=== PATIENT | male | born 1980 ===

== ENCOUNTER 2023-03-16 06:09 | Day surgery (SDC) | payer OTHER ==
[2023-03-12 11:55] LABS: HEMATOCRIT 43.8 % (39.0-48.0); HEMOGLOBIN 14.3 g/dL (13-16.00); MEAN CORPUSCULAR HEMOGLOBIN 28.1 pg (27.00-32.0); MEAN CORPUSCULAR HGB CONC 32.7 g/dl (32.0-36.0); PLATELET COUNT 169 K/uL (150-450); RED BLOOD COUNT 5.09 M/uL (4.00-6.00); RED CELL DISTRIBUTION WIDTH 13.1 % (11.5-14.5)
[2023-03-12 11:56] LABS: URINE APPEARANCE Clear; URINE BILIRRUBIN Negative (NEGATIVE); URINE BLOOD Negative; URINE COLOR Yellow; URINE GLUCOSE Negative (NEGATIVE); URINE LEUKOCYTE Negative; URINE NITRATE Negative; URINE PROTEIN Negative (NEGATIVE); URINE UROBILINOGEN 0.2 E.U./dl
[2023-03-12 12:01] LABS: URINE RBC 3.7 uL (0.0-20.8)
[2023-03-12 12:15] LABS: URINE BACTERIA 1.2 uL (0.0-1933); URINE WBC 1.2 uL (0.0-23.2)
[2023-03-12 12:15] LABS: INR 0.98; PARTIAL THROMBOPLASTIN TIME 25.5 SECONDS (22.0-34.0); PROTHROMBIN TIME 10.3 SECONDS (9.0-11.5)
[2023-03-12 12:46] LABS: BILIRUBIN TOTAL 0.51 mg/dL (0.3-1.2); CALCIUM 9.8 mg/dL (8.5-10.1); CREATININE SERUM 1.28 mg/dL (0.70-1.30); GFR 61.63; GLOBULINA 3.4 G/DL (2.4-3.5); POTASSIUM 4.64 mEq/L (3.5-5.1); TOTAL PROTEIN 7.4 gm/dL (6.4-8.2)
== END 2023-03-16 14:50 | disposition home or self-care (01) ==
LOC: CIR.AMB 06:09
PROVIDERS: ATTEND Orthopaedic Surgery Hand Surgery
DX: S63.301A Traumatic rupture of unspecified ligament of right wrist, initial encounter (principal); E11.9 Type 2 diabetes mellitus without complications; E78.00 Pure hypercholesterolemia, unspecified; E78.3 Hyperchylomicronemia; Z20.822 Contact with and (suspected) exposure to COVID-19; I10 Essential (primary) hypertension